=== PATIENT | male | born 2005 | race African-American/Black ===

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

== ENCOUNTER 2025-06-15 08:35 | Emergency (ER) | payer OTHER ==
[2025-06-15] MEDS ORDERED: Acetaminophen 500 MG TAB ONE (08:57)
[2025-06-15] MEDS ORDERED: Dexamethasone 10 MG/ML VIAL ONE (08:58)
[2025-06-15] MEDS ORDERED: Ketorolac Tromethamine 30 MG (1 mL) VIAL ONE (08:58)
== END 2025-06-15 10:00 | disposition home or self-care (01) ==
LOC: ERS 08:35
DX: J11.1 Influenza due to unidentified influenza virus with other respiratory manifestations (principal)
CPT/HCPCS: 87081; 87428; 87430; 96372; 99283; J1100; J1885